=== PATIENT | female | born 1995 | race Caucasian/White ===

== ENCOUNTER 2023-08-07 15:20 | Emergency (ER) | payer OTHER, MEDICAID, SELFPAY ==
[2023-08-07 15:21] VITALS: BP 90/71; PULSE 95; RESP 16; TEMP 36.3; O2SAT 100; BMI 54.0
--- NOTE | 2023-08-07 16:03 | EDS_ITS ---
HPI History of Present Illness Chief Complaint: Palpitations Informant: patient Onset/Context/Timing Onset: Yesterday Context: Sudden Onset Timing: Continuous Quality: Heart racing Location: Chest Worsened by: Nothing Relieved by: Nothing Narrative Narrative: Patient presents with palpitations that began yesterday. Patient states that she had episode where her heart was racing. Patient states that it began again today at work. Patient states it began rather suddenly. Patient states it has been constant today. Patient states nothing makes it better nothing makes it worse. Patient denies any chest pain. Patient admits to some swelling of her left leg. Patient denies any shortness of breath or cough. [facility] Medical History (Updated 08/07/23 @ 18:[address] Santos Voss DO) Asthma Diabetes mellitus Hypercholesterolemia Allergy/AdvReac Type Severity Reaction Status Date / Time No Known Allergies Allergy Verified 08/07/23 16:24 Surgical History (Updated 08/07/23 @ 16:[address] Santos Voss DO) History of herniorrhaphy Hx of eye surgery Hx of tonsillectomy Social History Smoking Status: Never smoker ROS ROS ED Constitutional Constitutional ED: Denies chills or fever(s) Eyes Eyes: Denies blurry vision or change in vision ENT ENT ED: Denies rhinorrhea or sore throat Cardiovascular Cardiovascular: Reports palpitations and racing heartbeat; Denies chest pain Respiratory/Chest Respiratory/Chest: Denies cough or dyspnea Gastrointestinal Gastrointestinal: Denies nausea or vomiting Genitourinary Genitourinary ED: Denies dysuria or hematuria Musculoskeletal Musculoskeletal: Denies back pain or neck pain Integumentary Denies abscess or rash Neurologic Neurologic: Reports headache(s); Denies weakness Allergic/Immunologic Allergic/Immunologic ED: Denies mouth swelling or urticaria EXAM Physical Exam Const Vital Signs: 08/07/23 15:21 08/07/23 15:20 08/07/23 16:22 Temperature 97.4 F L Temperature Source Temporal Pulse Rate 95 96 Respiratory Rate 16 20 H Respiratory Effort Normal Blood Pressure 90/71 132/89 H Blood Pressure Mean 77 103 Pulse Ox 100 100 Oxygen Delivery Method Room Air Room Air 08/07/23 18:00 Temperature Temperature Source Pulse Rate 64 Respiratory Rate 16 Respiratory Effort Blood Pressure 139/78 H Blood Pressure Mean 98 Pulse Ox 98 Oxygen Delivery Method Positive well nourished, well developed and obese General Appearance ED: well developed and NAD Nutritional Appearance: obese HEENT Reports moist mucous membranes Neck supple and no JVD Resp normal respiratory effort and clear to auscultation bilaterally Cardio regular rate and regular rhythm GI non-tender and non-distended Palpation: soft Extremity normal to inspection Neuro oriented x3, CN's II-XII intact bilaterally and no sensory deficits noted Sensorium / Orientation: alert Motor Exam: strength 5/5 throughout Psych mental status grossly normal MDM MDM MDM Narrative Medical decision making narrative: Differential diagnosis includes cardiac dysrhythmia, cardiac ischemia, electrolyte abnormality, anemia, pneumonia, pneumothorax, DVT, PE, and anxiety. EKG will be obtained to assess for cardiac dysrhythmia and cardiac ischemia. Chest x-ray will be obtained to assess for pneumonia and pneumothorax. CBC will be obtained to assess for leukocytosis and anemia. Basic metabolic profile will be obtained to assess for electrolyte abnormality and renal function. High- sensitivity troponin will be obtained to assess for cardiac ischemia. D-dimer will be obtained to assess for pulmonary embolism and DVT. Lab Data Attestation: I reviewed the patient's lab results. Lab results narrative: CBC was reviewed and was essentially within normal limits. Basic metabolic profile was reviewed and was within normal limits. Serum hCG was reviewed and was negative. High-sensitivity troponin was reviewed and was normal. D-dimer was reviewed and was elevated at 0.79. Labs: Laboratory Results - last 24 hr 08/07/23 16:55 WBC 8.7 RBC 5.82 H Hgb 16.5 H Hct 49.9 H MCV 85.7 MCH 28.4 MCHC 33.1 RDW Std Deviation 37.2 RDW Coeff of Miry[place] 12.1 Plt Count 271 MPV 10.4 Immature Gran % (Auto) 0.200 Neut % (Auto) 54.3 Lymph % (Auto) 36.2 [place] % (Auto) 7.5 Eos % (Auto) 0.9 Baso % (Auto) 0.9 Absolute Neuts (auto) 4.7 Absolute Lymphs (auto) 3.16 Nucleated RBC % 0 D-Dimer Quant (PE/DVT) 0.79 H* Sodium 134 L Potassium 3.8 Chloride 101 Carbon Dioxide 28.0 Anion Gap 5 BUN 11 Creatinine 0.91 Estim Creat Clear Calc 128.34 Est GFR (MDRD) Af Amer 95 Est GFR (MDRD) Non-Af 79 BUN/Creatinine Ratio 12.0 Glucose 439 H Calcium 9.6 Troponin I High Sens 5 Serum , Qual NEGATIVE Radiography Diagnostic Testing: Clinical Impression(s) from Imaging Studies Chest X-Ray 08/07/23 17:15 IMPRESSION: Normal x-ray examination of the chest. Electronically Signed: Lionel Larkin MD at 17:48 EST , Chest CTA 08/07/23 17:32 IMPRESSION: Normal CTA chest examination, without a demonstrated pulmonary embolism or arterial dissection. Electronically Signed: Lionel Larkin MD at 18:18 EST , Venous Duplex 08/07/23 17:46 IMPRESSION: Limited examination of the calf veins due to diffuse edema. No definitive sonographic evidence for deep venous thrombosis Electronically Signed: Lionel Larkin MD at 18:41 EST , PA and lateral chest x-ray was obtained. There are 2 views. On my independent interpretation, lung deluca are clear. There is normal cardiac silhouette. Bony thorax is normal. There is no acute process noted. Radiologist also interpreted the x-ray and agrees. Because of the elevated D-dimer, CTA of the chest was obtained. There is no evidence of pulmonary embolism or aortic dissection. There is no acute process noted. This was interpreted by the radiologist and also independently reviewed by myself. Also because of the elevated D-dimer and left leg pain, venous duplex of the left lower extremity was obtained. There is no evidence of DVT. EKG Initial EKG: Attestation: I personally reviewed and interpreted this EKG as follows: Interpretation: Sinus Rhythm (85) and Non-Specific ST Changes Comments: EKG was obtained. On my independent interpretation, it showed a normal sinus rhythm with a rate of 85. SD interval, QRS interval, and QTc intervals were all normal. [place] was normal. There are nonspecific ST-T wave changes. Prior EKG tracings: not available for review Prior: No Prior Treatment and Re-Evaluation :: Patient was given IV fluids. Patient is feeling better on reevaluation. Patient was advised of her findings. Patient was instructed to follow-up with her primary care physician tomorrow as scheduled. Patient understood and was agreeable with the plan. All questions were answered. Discharge Plan Triage Chief Complaint: Palpitations ED Provider: Santos Voss Dx/Rx/DC Orders Clinical Impression: Heart palpitations, Morbid obesity with BMI of 50.0-59.9, adult Instructions: ED Palpitations Primary Care Provider: JIM RENDON DO Referrals: JIM RENDON DO [Other] - [facility] appointment NOT,DEFINED [Non-Staff] - Disposition Disposition: Home, Self Care
[2023-08-07 16:22] VITALS: BP 132/89; PULSE 96; RESP 20; O2SAT 100
--- NOTE | 2023-08-07 16:35 | EKG12_ITS ---
Test Reason : PALPITATIONS Blood Pressure : / mmHG Vent. Rate : 085 BPM Atrial Rate : 085 BPM P-R Int : 184 ms QRS Dur : 090 ms QT Int : 372 ms P-R-T Axes : 059 037 013 degrees QTc Int : 442 ms Normal sinus rhythm with sinus arrhythmia Nonspecific ST & T changes Abnormal ECG Confirmed by Don Morgan ([id number]), book editor BRIGIDO GANDARA ([id number]) on 08/08/2023 9:49:08 AM Referred By: SHAR/OTIS Confirmed By:Don Morgan
--- NOTE | 2023-08-07 16:56 | ED.RN ---
NO OLD EKG
[2023-08-07] MEDS: 0.9% Normal Saline (1000mL) 1,000 ML 1000 ML IV (16:57)
[2023-08-07 17:12] LABS: Absolute Lymphocyte Count 3.16 X10^3/uL (0.83-4.51); Absolute Neutrophil Count 4.7 X10^3/uL (2.0-7.7); Basophil# 0.08 X10^3/uL; Basophil% 0.9 % (0-1); Eosinophil# 0.08 X10^3/uL; Eosinophils% 0.9 % (0-5); Hematocrit 49.9 % (37-47); Hemoglobin 16.5 g/dL (12.0-15.0); Lymphocyte # 3.16 X10^3/ul (0.83-4.51); Lymphocyte % 36.2 % (19-41); Mean Corp Hgb Conc 33.1 g/dL (32-36); Mean Corpuscular Hgb 28.4 pg (27.0-32.0); Mean Corpuscular Volume 85.7 fL (81-99); Mean Platelet Vol. 10.4 fl (6.2-12.0); Monocyte# 0.65 X10^3/uL; Monocyte% 7.5 % (0-10); NRBC Flagged by Analyzer 0 % (0-5); Neutrophil # 4.73 X10^3/uL (2.7-7.7); Neutrophil % 54.3 % (47-70); Platelet Count 271 K/mm3 (150-450); RBC Distribution Width CV 12.1 % (11.6-14.6); RBC Distribution Width SD 37.2 fl (35.1-43.9); Red Blood Count 5.82 M/mm3 (4.2-5.4); White Blood Count 8.7 K/mm3 (4.4-11.0)
--- NOTE | 2023-08-07 17:15 | RAD_ITS ---
STUDY: X-RAY CHEST REASON FOR EXAM: Female, 27 years old. Palpitations TECHNIQUE: PA and lateral COMPARISON: None. FINDINGS: The lungs are clear and expanded. There is no demonstrated pleural abnormality. Normal size heart. Normal mediastinum and ian. Normal visualized pulmonary arteries. Normal visualized aortic arch and descending thoracic aorta. Normal visualized thoracic spine. Normal visualized ribs, clavicles, and shoulders. There is no demonstrated abnormality of the visualized soft tissue structures of the upper abdomen. RAD/Chest PA and Lateral IMPRESSION: Normal x-ray examination of the chest. Electronically Signed: Lionel Larkin MD at 17:48 EST ,
[2023-08-07 17:20] LABS: Internal QC Validated? YES +Cl - CLEAR BKGD; Pregnancy, Serum, hCG Quali. NEGATIVE Negative
[2023-08-07 17:27] LABS: D-Dimer Quantitative (DVT/PE) 0.79 FEU/ug/m (0.27-0.49)
[2023-08-07 17:30] LABS: Anion Gap 5 (5-15); BUN 11 mg/dL (7-18); Calcium,Total 9.6 mg/dL (8.5-10.1); Chloride 101 mmol/L (98-107); Creatinine, Serum 0.91 mg/dL (0.55-1.02); EST Glomerular Filtration Rate 79 mL/min (>60); Est Glom Filt Rate - Afr Amer 95 mL/min (>60); Estimated Creatinine Clearance 128.34 ml/min; Glucose 439 mg/dL (74-106); Potassium 3.8 mmol/L (3.5-5.1); Sodium Level 134 mmol/L (136-145); Troponin-I HS 5 pg/mL (3.0-54.0)
--- NOTE | 2023-08-07 17:32 | CT_ITS ---
STUDY: CTA CHEST REASON FOR EXAM: Female, 27 years old. Elevated D-dimer RADIATION DOSAGE (If Supplied By Facility): CTDIvol = ( 19.15 ) mGy, DLP = ( 1629.69 ) mGycm TECHNIQUE: The examination was performed with the intravenous administration of IV 100mL [id number]-[id number]. Post-processing of the angiographic images was performed, with multiplanar reformation and 3D reconstruction. Individualized dose optimization techniques were used for this CT. COMPARISON: None. FINDINGS: Normal enhancement of the main pulmonary artery and right and left pulmonary arteries. Normal enhancement of the bilateral peripheral pulmonary arteries. There is no demonstrated pulmonary embolism. Normal thoracic aorta and visualized great vessels. There is no demonstrated aortic dissection. Normal heart and pericardium. Normal mediastinum. Normal hilar regions. Normal visualized trachea and bronchi. The lungs are well expanded. Normal pulmonary parenchyma. Normal pleura. Normal chest wall structures. Normal osseous structures. Normal visualized upper abdomen. CT/CTA Chest W/WO Contrast IMPRESSION: Normal CTA chest examination, without a demonstrated pulmonary embolism or arterial dissection. Electronically Signed: Lionel Larkin MD at 18:18 EST ,
--- NOTE | 2023-08-07 17:46 | US_ITS ---
STUDY: VENOUS DOPPLER ULTRASOUND - LEFT LOWER EXTREMITY REASON FOR EXAM: Female, 27 years old. left leg swelling, elevated d-dimer TECHNIQUE: Ultrasound evaluation of the deep vein system to include hernnadez-scale imaging and compression was performed. Hernandez-scale imaging and Doppler sonographic evaluation, including duplex spectral analysis and qualitative color flow sonography, was performed. COMPARISON: None. FINDINGS: Common Femoral Vein: Normal compression, spontaneity and augmentation. Normal color Doppler. Common Femoral Vein/Greater Saphenous Junction: Normal compression, spontaneity and augmentation. Normal color Doppler. Deep Femoral Vein: Normal compression, spontaneity and augmentation. Normal color Doppler. Femoral Proximal: Normal compression, spontaneity and augmentation. Normal color Doppler. Femoral Middle: Normal compression, spontaneity and augmentation. Normal color Doppler. Femoral Distal: Normal compression, spontaneity and augmentation. Normal color Doppler. Popliteal Vein: Normal compression, spontaneity and augmentation. Normal color Doppler. Examination of the calf veins was limited due to diffuse edema. Posterior Tibial Vein: Normal compression, spontaneity and augmentation. Normal color Doppler. Peroneal Vein: Normal compression, spontaneity and augmentation. Normal color Doppler. US/Venous Duplex Imag/Limited/Uni IMPRESSION: Limited examination of the calf veins due to diffuse edema. No definitive sonographic evidence for deep venous thrombosis Electronically Signed: Lionel Larkin MD at 18:41 EST ,
[2023-08-07 18:00] VITALS: BP 139/78; PULSE 64; RESP 16; O2SAT 98
[2023-08-07 19:03] VITALS: BP 140/86; PULSE 89; RESP 17; TEMP 36.8; O2SAT 100
== END 2023-08-07 19:07 | disposition home or self-care (01) ==
PROVIDERS: Emergency Provider Emergency Medicine; Visit Provider Emergency Medicine
DX: R00.2 Palpitations (principal); E66.01 Morbid (severe) obesity due to excess calories; Z68.43 Body mass index [BMI] 50.0-59.9, adult; E11.9 Type 2 diabetes mellitus without complications
CPT/HCPCS: 71046; 71275; 80048; 84484; 84703; 85025; 85379; 93005; 93971; 96360; 99284; J7030; Q9967